=== PATIENT | female | born 1950 | race Caucasian/White ===

== ENCOUNTER 2020-09-15 18:59 | Emergency (ER) | payer OTHER, SELFPAY ==
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
[2020-09-15 19:01] VITALS: BP 152/89; PULSE 84; RESP 18; TEMP 36; O2SAT 97
[2020-09-15 19:52] VITALS: BP 147/72; PULSE 73; RESP 18; TEMP 36.7; O2SAT 98
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
[2020-09-15] MEDS: KETOROLAC 30 MG/ML VIAL (*BKC) 15 MG IM (21:03)
[2020-09-15 22:45] VITALS: BP 136/70; PULSE 70; RESP 16; O2SAT 98
== END 2020-09-15 22:44 | disposition home or self-care (01) ==
PROVIDERS: Emergency Provider Emergency Medicine
DX: S02.2XXA Fracture of nasal bones, initial encounter for closed fracture (principal); S16.1XXA Strain of muscle, fascia and tendon at neck level, initial encounter; S63.601A Unspecified sprain of right thumb, initial encounter; M25.511 Pain in right shoulder; V89.2XXA Person injured in unspecified motor-vehicle accident, traffic, initial encounter
CPT/HCPCS: 70450; 70486; 72125; 73030; 73140; 96372; 99284; J1885

== ENCOUNTER 2021-07-07 18:56 | Emergency (ER) | payer OTHER, SELFPAY ==
--- NOTE | ~2021-07-07 | XR_ITS ---
EXAMINATION: XR chest 2V EXAM DATE: 07/08/2021 17:42 INDICATION: productive cough hx copd. TECHNIQUE: Frontal and lateral projections of the chest obtained and reviewed. There is no prior florentin dy for comparison. FINDINGS: Small amount of bibasilar atelectasis or pneumonia. Some chronic hyperinflation. No pneumo thorax or pleural effusion. Cardiomediastinal silhouette is normal. There are no osseous abnormalitie s identified. IMPRESSION: Small amount of bibasilar atelectasis or pneumonia. Reviewed, dictated and finalized at location G. T FURNACE KEEPER
--- NOTE | 2021-07-07 19:09 | ED.URI ---
HPI - URI/Sore Throat General Chief Complaint: Upper Respiratory Infection Stated Complaint: Weak,Cough Time Seen by Provider: 07/07/21 19:50 Source: patient and RN notes reviewed Mode of arrival: ambulatory Limitations: no limitations History of Present Illness HPI Narrative: 70-year-old female presents with concern for general weakness, cough, poor appetite, fatigue. Reports symptoms started the beginning of the week. She reports she has been able to drink fluids, however she has not had much solid food. She denies shortness of breath, fever MD elicited complaint: cough and sore throat Related Data Allergies Allergy/AdvReac Type Severity Reaction Status Date / Time No Known Allergies Allergy Mild Verified 07/07/21 19:57 Review of Systems Review of Systems: CONSTITUTIONAL: Reports malaise, chills, fatigue, generalized weakness. Denies sweats, or fever. EYES: Denies visual changes, redness, or discharge. ENT: Reports rhinorrhea. Denies congestion, sinus pain, otalgia and sore throat. CARDIOVASCULAR: Denies chest pain, palpitations, or edema. RESPIRATORY: Reports cough. Denies dyspnea. GASTROINTESTINAL: Denies abdominal pain, nausea, vomiting, diarrhea. Reports decreased appetite SKIN: Denies rash or itching. MUSCULOSKELETAL: Denies myalgia. NEUROLOGIC: Denies headache. All systems reviewed & are unremarkable except as noted in HPI and below PMFSH Comments At time of signature, agree with nursing past medical, surgical, social and family history. There is no relevant family history pertinent to the presenting complaint Exam Narrative: GENERAL: Well-appearing, well-nourished, and in no acute distress. HEAD: Normocephalic EYES: PERRLA, conjunctivae clear ENT: Nares clear. Mucous membranes moist. TM pearly melchor with dull light reflex bilaterally; no tragal tenderness. Oropharynx not erythematous without lesions. Tonsils not enlarged and without exudate, no drooling, no hoarseness, no trismus, uvula midline. NECK: Supple. No lymphadenopathy CHEST: Bilateral lower lobe rhonchi, otherwise breath sounds equal. No wheezing, rales, or stridor. No respiratory distress, speaks in full sentences. HEART: Regular rate and rhythm. No murmur heard. SKIN: Warm, dry, no rash. NEURO: Alert and oriented x3. PSYCH: Normal mood and affect Course Course Emergency Course: Patient's history and exam warrant a chest x-ray. This clinic is without an x-ray controls technician at this time, offered patient an outpatient order to return tomorrow for a chest x-ray, I will follow-up with the patient and the x-ray. Patient notified that if she does not return tomorrow she will need to be registered to be seen by the on-duty provider. Patient is aware of diagnosis, understands and agrees to treatment plan. Anticipatory guidance given. Patient agrees to follow-up as directed and is aware of reasons to seek care at the emergency department. Portions of this record may have been created with voice recognition software Level of Care: Express Care Visit Vital Signs Vital signs: Reviewed. MDM - URI/Sore Throat MDM Narrative Medical decision making narrative: Differential diagnosis considered: [place]ver[place] virus, strep pharyngitis, allergic rhinitis, upper respiratory tract infection, sinusitis, rhinosinusitis, nasopharyngitis. viral pharyngitis, otitis media, otitis externa, pneumonia, bronchitis, viral cough syndrome, viral syndrome, and influenza. Exam findings show no acute concerns or changes; patient is non-toxic appearing and is in no distress. Patient is appropriate for outpatient treatment and follow-up. Lab Data Attestation: I reviewed the patient's lab results. Critical Care Time Critical Care Time Critical Care Time: No Discharge Plan Discharge Clinical Impression: Abnormal lung sounds Patient Disposition: Home, Self-Care Condition: Stable Instructions: Antibiotic Form, Pneumonia (ED) Additional Instructions: Your rapid COVID test was negative
[2021-07-07 19:45] VITALS: BP 110/53; PULSE 97; RESP 24; TEMP 37.7; O2SAT 95
[2021-07-09 10:44] LABS: SARS-CoV-2 RNA PCR Positive
== END 2021-07-07 20:25 | disposition home or self-care (01) ==
PROVIDERS: Emergency Provider Nurse Practitioner
DX: U07.1 COVID-19 (principal); R09.89 Other specified symptoms and signs involving the circulatory and respiratory systems
CPT/HCPCS: 71046; 87426; 87804; 99213; C9803; G0463; U0003; U0005

== ENCOUNTER 2024-07-28 18:07 | Emergency (ER) | payer SELFPAY ==
--- OUTSIDE RECORDS SUMMARY | 2024-07-28 18:11 | XMS_ITS | Patient Health Summary ---
Author Organization [facility] Address [address] [place] [address] Care Team Providers Care Complex Case Manager Name Role Phone Unavailable Primary Care Provider Unavailabl e Note from [facility],non-owned Affiliates and Associated Physician Practices is amultiple site organization consisting of ambulatory clinics and hospital sitesin [place], [place], [place] and [place]. This disclosure is being madepursuant to the Care Everywhere program and may not contain all information available regarding this patient. Last updated 18.[facility] [employer] Allergies No known active allergies Medications * Be aware that medications may not be up to date on this document. Alwaysverify current medications with the patient. * Multiple Vitamin (MULTI VITAMIN PO) * Ascorbic Acid (VITAMIN C PO) * melatonin 5 MG tablet Take by mouth at bedtime * VITAMIN E PO * [place]-3 Fatty Acids (FISH OIL PO) * predniSONE (DELTASONE) 20 MG tablet(Started 03/18/2020) Days 1-5 take 60 mg (3 tablets) daily. Days 6-10 take 40 mg (2 tablets) daily. Day 11-15 take 20 mg(1 tablet) daily. * triamcinolone acetonide (KENALOG) 0.1 % cream(Started 03/18/2020) Apply to affected area 2 times daily * predniSONE (DELTASONE) 20 MG tablet(Started 12/24/2020) 60 mg (3 tablets) days 1-5, 40 mg (2 tablets) days 6-10, 20 mg (1 tablet) days 11-15 * predniSONE (DELTASONE) 20 MG tablet(Started 01/31/2021) 3 tabs PO QD x 4 days, 2 tabs PO for 6 days, 1 tab PO x 6 days Take with food Active Problems No known active problems Social History Tobacco Use Types Packs/Day Years Used Date Smoking Tobacco: Every Day Cigarettes 0.5 30 Smokeless Tobacco: Never PHQ-2 Answer Date Recorded PHQ2 TOTAL SCORE 0 12/24/2020 Sex and Gender Information Value Date Recorded Sex Assigned at Not on file Gender Identity Not on file Sexual Orientation Not on file Last Filed Vital Signs Vital Sign Reading Time Taken Comments Blood Pressure 130/78 12/24/2020 11:08 AM CDT Pulse 84 01/31/2021 6:30 PM CDT Temperature 36.4 ??C (97.6 ??F) 01/31/2021 6:30 PM CD T Respiratory Rate 16 01/31/2021 6:30 PM CDT Oxygen Saturation 96% 01/31/2021 6:30 PM CDT Inhaled Oxygen Concentration - - Weight 65.8 kg (145 lb) 01/31/2021 6:30 PM CDT Height 167.6 cm (5' 6 ) 01/31/2021 6:30 PM CDT Body Mass Index 23.4 01/31/2021 6:30 PM CDT
--- OUTSIDE RECORDS SUMMARY | 2024-07-28 18:11 | XMS_ITS | Clinical Summary ---
Author Organization [facility] Address [address] [place] [address] Care Team Providers Care Coffee Shop Aide Name Role Phone Unavailable Primary Care Provider Unavailabl e Source Comments [facility],non-owned Affiliates and Associated Physician Practices is amultiple site organization consisting of ambulatory clinics and hospital sitesin [place], [place], [place] and [place]. This disclosure is being madepursuant to the Care Everywhere program and may not contain all information available regarding this patient. Last updated 18.[facility] Allergies No known active allergies Medications * Be aware that medications may not be up to date on this document. Alwaysverify current medications with the patient. Medication Sig Dispensed Refills Start Date End Date Status Multiple Vitamin (MULTI VITAMIN PO) Active Ascorbic Acid (VITAMIN C PO) Active melatonin 5 MG tablet Take by mouth at bedtime Active VITAMIN E PO Active [place]-3 Fatty Acids (FISH OIL PO) Active predniSONE (DELTASONE) 20 MG tablet Days 1-5 take 60 mg (3 tablets) daily. Days 6-10 take 40 mg (2 tablets) daily. Day 11-15 take 20 mg (1 tablet) daily. 30 tablet 03/18/2020 Active Additional Information Patient not taking.Reported on 01/31/2021 triamcinolone acetonide (KENALOG) 0.1 % cream Apply to affected area 2 times daily 30 g 03/18/2020 Active Additional Information Patient not taking.Reported on 01/31/2021 predniSONE (DELTASONE) 20 MG tablet 60 mg (3 tablets) days 1-5, 40 mg (2 tablets) days 6-10, 20 mg (1 tablet) days 11-15 30 tablet 12/24/2020 Active Additional Information Patient not taking.Reported on 01/31/2021 predniSONE (DELTASONE) 20 MG tablet 3 tabs PO QD x 4 days, 2 tabs PO for 6 days, 1 tab PO x 6 days Take with food 30 tablet 01/31/2021 Active Active Problems No known active problems Social [...] Mass Index 23.4 01/31/2021 6:30 PM CDT Plan of Treatment Health Maintenance Due Date Last Done Comments BONE DENSITY TESTING 1952 COLOGUARD (AGES 45-75) - COL ON CA SCREENING 1952 COLON MONITORING 1952 COLONOSCOPY - COLON CA SCREENING 1952 CT COLONOGRAPHY - COLON CA SCREENING 1952 Colorectal Cancer Screening 1952 FIT - COLON CA SCREENING 1952 FLEX SIG - COLON CA SCREENING 1952 LIPID TESTING 1952 MAMMOGRAM 1952 HEPATITIS C SCREENING 10/05/1970 DTAP/TDAP/TD VACCINES (1 - Tdap) 10/10/1971 PNEUMOCOCCAL VACCINE 50+ (1 of 2 - PCV) 10/10/1971 ZOSTER VACCINE (1 of 2) 2002 COVID-19 VACCINE (1 - 2023-2 5 season) 2024 INFLUENZA VACCINE (#1) 2024 0, 04/07/2013 DEPRESSION SCREENING 06/24/2024 Respiratory Syncytial Virus (RSV) Vaccine Pt: or over 60 yrs (1 - 1-dose 75+ series) 10/10/2027 HEPATITIS B VACCINE Aged Out No longe r eligible based on patient's age to complete this topic HIB VACCINE Aged Out No longer eligi ble based on patient's age to complete this topic HPV VACCINE Aged Out No longer eligi ble based on patient's age to complete this topic MENINGOCOCCAL (Group B) VACCINE Aged Out No longer eligible b ased on patient's age to complete this topic MENINGOCOCCAL VACCINE Aged Out No yao susu eligible based on patient's age to complete this topic
--- OUTSIDE RECORDS SUMMARY | 2024-07-28 18:11 | XMS_ITS | Referral Summary ---
Author Organization [facility] [employer] Address [address] [place] [address] Care Team Providers Care Housing Director Name Role Phone Unavailable Primary Care Provider Unavailabl e Source Comments [facility] [employer],non-owned Affiliates and Associated Physician Practices is amultiple site organization consisting of ambulatory clinics and hospital sitesin [place], [place], [place] and [place]. This disclosure is being madepursuant to the Care Everywhere program and may not contain all information available regarding this patient. Last updated 18.[facility] [employer] Allergies No known active allergies Medications * Be aware that medications may not be up to date on this document. Alwaysverify current medications with the patient. Medication Sig Dispensed Refills Start Date End Date Status Multiple Vitamin (MULTI VITAMIN PO) Active Ascorbic Acid (VITAMIN C PO) Active melatonin 5 MG tablet Take by mouth at bedtime Active VITAMIN E PO Active [place]-3 Fatty Acids (FISH OIL PO) Active predniSONE [...] 01/31/2021 6:30 PM CDT Plan of Treatment Not on file
[2024-07-28 20:22] VITALS: BP 158/73; PULSE 79; RESP 16; TEMP 36.4; O2SAT 95
--- NOTE | 2024-07-28 22:14 | PC.NURSE ---
Pt and daughter states that she is leaving. Pt ambulatory with daughter to waiting room with steady gait.
--- OUTSIDE RECORDS SUMMARY | 2024-07-28 22:20 | XMS_ITS | Referral Summary ---
Author Organization [facility] Address [address] [place] [address] Care Team Providers Care Campus Supervisor Name Role Phone Unavailable Primary Care Provider Unavailabl e Source Comments [facility],non-owned Affiliates and Associated Physician Practices is amultiple site organization consisting of ambulatory clinics and hospital sitesin [place], [place], [place] and [place]. This disclosure is being madepursuant to the Care Everywhere program and may not contain all information available regarding this patient. Last updated 18.[facility] Allergies No known active allergies Medications * Be aware that medications may not be up to date on this document. Alwaysverify current medications with the patient. Medication Sig Dispensed Refills Start Date End Date Status Multiple Vitamin (MULTI VITAMIN PO) Active Ascorbic Acid (VITAMIN C PO) Active melatonin 5 MG tablet Take by mouth at bedtime Active VITAMIN E PO Active [place]-3 Fatty Acids (FISH OIL PO) Active predniSONE [...]
--- OUTSIDE RECORDS SUMMARY | 2024-07-28 22:20 | XMS_ITS | Clinical Summary ---
Author Organization [facility] [employer] Address [address] [place] [address] Care Team Providers Care Hadoop Java Developer Name Role Phone Unavailable Primary Care Provider Unavailabl e Source Comments [facility] [employer],non-owned Affiliates and Associated Physician Practices is amultiple site organization consisting of ambulatory clinics and hospital sitesin [place], [place], [place] and [place]. This disclosure is being madepursuant to the Care Everywhere program and may not contain all information available regarding this patient. Last updated 18.[facility] [employer] Allergies No known active allergies Medications * Be aware that medications may not be up to date on this document. Alwaysverify current medications with the patient. Medication Sig Dispensed Refills Start Date End Date Status Multiple Vitamin (MULTI VITAMIN PO) Active Ascorbic Acid (VITAMIN C PO) Active melatonin 5 MG tablet Take by mouth at bedtime Active VITAMIN E PO Active [place]-3 Fatty Acids (FISH OIL PO) Active predniSONE [...]
--- OUTSIDE RECORDS SUMMARY | 2024-07-28 22:20 | XMS_ITS | Patient Health Summary ---
Author Organization [facility] Address [address] [place] [address] Care Team Providers Care Smoke Control Supervisor Name Role Phone Unavailable Primary Care Provider Unavailabl e Note from [facility],non-owned Affiliates and Associated Physician Practices is amultiple site organization consisting of ambulatory clinics and hospital sitesin [place], [place], [place] and [place]. This disclosure is being madepursuant to the Care Everywhere program and may not contain all information available regarding this patient. Last updated 18.[facility] [employer] Allergies No known active allergies Medications * Be aware that medications may not be up to date on this document. Alwaysverify current medications with the patient. * Multiple Vitamin (MULTI VITAMIN PO) * Ascorbic Acid (VITAMIN C PO) * melatonin 5 MG tablet Take by mouth at bedtime * VITAMIN E PO * [place]-3 Fatty Acids (FISH OIL PO) * predniSONE [...]
== END 2024-07-28 22:14 | disposition left against medical advice (07) ==
DX: R41.3 Other amnesia (principal)
CPT/HCPCS: 99199